=== PATIENT | male | born 1990 | race Native Hawaiian/Other Pacific Islander ===

== ENCOUNTER 2019-02-19 21:03 | Emergency (ER) | payer OTHER ==
[~2019-02-19] VITALS: Ht 188 cm; Wt 86.2 kg
[2019-02-19 21:23] VITALS: BP 128/68; TEMP 98.1
== END 2019-02-19 21:23 | disposition home or self-care (01) ==
LOC: ED 21:03
DX: J06.9 Acute upper respiratory infection, unspecified (principal)
CPT/HCPCS: 87502; 87651; 99283